=== PATIENT | male | born 1970 | race Caucasian/White ===

== ENCOUNTER 2019-02-21 13:35 | Emergency (ER) | payer OTHER ==
[~2019-02-21] VITALS: Ht 160 cm; Wt 70.5 kg
[~2019-02-21 13:35] MED LIST: DIVA125C16 PO; LEVE-5 PO
[2019-02-21 13:46] VITALS: Ht 160 cm; Wt 70.5 kg
[2019-02-21] MEDS ORDERED: LEVETIRACETAM 1000 MG (PMX) 100 ML IVPB STA (13:53)
[2019-02-21] MEDS ORDERED: SOD CHLORIDE 0.9% 1,000 ML IV STA (13:53)
[2019-02-21 15:37] VITALS: BP 140/78; PULSE 90; RESP 18
== END 2019-02-21 16:03 | disposition home or self-care (01) ==
LOC: E/R 13:35
DX: G40.909 Epilepsy, unspecified, not intractable, without status epilepticus (principal); R40.2142 Coma scale, eyes open, spontaneous, at arrival to emergency department; R40.2252 Coma scale, best verbal response, oriented, at arrival to emergency department; R40.2362 Coma scale, best motor response, obeys commands, at arrival to emergency department; Z87.891 Personal history of nicotine dependence
CPT/HCPCS: 36415; 70450; 80048; 80307; 85025; 96374; J1953; J7030; Z7502